=== PATIENT | female | born 1955 | race Caucasian/White ===

== ENCOUNTER 2017-04-02 05:45 | Day surgery (SDC) | payer OTHER ==
[~2017-04-02] VITALS: Ht 167.6 cm; Wt 85.4 kg
[2017-04-02] VITALS (7 sets, daily range): BP systolic 96–116; BP diastolic 55–71; PULSE 60–66; RESP 11–22; Ht 167.6 cm; Wt 85.4 kg
[2017-04-02] MEDS ORDERED: LACTATED RINGER'S 1,000 ML IV ONE (06:30)
[2017-04-02] MEDS ORDERED: LIDOCAINE 2%/EPI 30 ML INJ ONE (06:41)
[2017-04-02] MEDS ORDERED: LIDOCAINE 1% (MPF) 10 ML INJ ONE (06:41)
[2017-04-02] MEDS ORDERED: HYALURONATE/CHONDROITIN 1ML OPH INJ ONE (06:42)
[2017-04-02] MEDS ORDERED: EPINEPHrine 1 MG INJ ONE (06:42)
[2017-04-02] MEDS ORDERED: CARBACHOL 0.01% 1.5 ML OPH INJ ONE (06:42)
[2017-04-02] MEDS ORDERED: NA HYALURONATE/CHONDROITIN 0.5 ML SYG ONE (06:42)
[2017-04-02] MEDS ORDERED: LIDOCAINE 2%/EPI MPF (SDV) 20 ML VIAL INJ ONE (06:56)
[2017-04-02] MEDS ORDERED: LIDOCAINE 1% (MPF) 10 ML INJ INJ ONE (06:57)
[2017-04-02] MEDS ORDERED: HYALURONATE/CHONDROITIN 1ML OPH INJ IO ONE (06:57)
[2017-04-02] MEDS ORDERED: NA HYALURONATE/CHONDROITIN 0.5 ML SYG LEFT EYE ONE (06:57)
[2017-04-02] MEDS ORDERED: MOXIFLOXACIN 0.5% 3 ML OPH OPER SCH (07:00)
[2017-04-02] MEDS ORDERED: TROPICAMIDE 1% 2 ML OPH OPER SCH (07:00)
[2017-04-02] MEDS ORDERED: LIDOCAINE 3.5% GEL TUBE OPER SCH (07:00)
[2017-04-02] MEDS ORDERED: DICLOFENAC 0.1% 2.5 ML OPH OPER SCH (07:00)
[2017-04-02] MEDS ORDERED: TETRACAINE 0.5% 4 ML OPH BOTH EYES SCH (07:00)
[2017-04-02] MEDS ORDERED: PHENYLephrine 10% 5 ML OPH OPER SCH (07:00)
[2017-04-02] MEDS ORDERED: CYCLOPENTOLATE 2% 2 ML OPH OPER SCH (07:00)
[2017-04-02] MEDS ORDERED: PREDNISOLONE ACET 1% 5 ML OPH OPER SCH (07:00)
[2017-04-02] MEDS ORDERED: TOBRAMYCIN 0.3% 3.5 GM OPH OINT ONE (07:11)
--- NOTE | 2017-04-02 07:11 | HPN ---
Date/Time of Note Date/Time of Note DATE: 04/02/17 TIME: 07:11 Interval H&P Admission Note Pt. seen H&P reviewed: No system changes HOMERO MARTINEZ D.O. Apr 02, 2017 07:11
[2017-04-02] MEDS ORDERED: MIDAZOLAM 1 MG/ML 2 ML INJ ONE ×2 (07:28→08:21)
[2017-04-02] MEDS ORDERED: FENTAnyl 50 MCG/ML VIAL ONE (07:28)
[2017-04-02] MEDS ORDERED: GABA300C16 PO (07:31)
[2017-04-02] MEDS ORDERED: POTA20TA96 PO (07:31)
[2017-04-02] MEDS ORDERED: FURO20TA3 PO (07:31)
[2017-04-02] MEDS ORDERED: TRHC5025 PO (07:31)
[2017-04-02] MEDS ORDERED: NORTRIPTYLINE ORAL (07:31)
[2017-04-02] MEDS ORDERED: LOVA20TA PO (07:31)
[2017-04-02] MEDS ORDERED: TRYPAN BLUE 0.5 ML SYG IO ONE (07:35)
[2017-04-02] MEDS ORDERED: CEFAZOLIN 1 GM INJ ONE (07:48)
[2017-04-02] MEDS ORDERED: TOBRAMYCIN 0.3% 3.5 GM OPH OINT LEFT EYE ONE (08:13)
--- NOTE | 2017-04-02 09:04 | OPR ---
Date/Time of Note Date/Time of Note DATE: 04/02/17 TIME: 08:59 Operative Report Preoperative Diagnosis Senile cataract.Left eye Postoperative Diagnosis Senile cataract, Left eye Operation/Procedure Performed Cataract extraction via phacoemulsification and intraocular lens implantation, Left eye Surgeon: HOMERO MARTINEZ D.O. Anesthesia: MAC Estimated Blood Loss: none Grafts/Implants Baush and Lomb, anterior chamber lens 16.0 D Complications anterior capsular bag tear HOMERO MARTINEZ D.O. Apr 02, 2017 09:04
--- NOTE | 2017-04-04 08:42 | OPR ---
DATE OF OPERATION: 04/02/2017 PREOPERATIVE DIAGNOSIS: Senile cataract left eye. POSTOPERATIVE DIAGNOSIS: Senile cataract left eye. : Cataract extraction via phacoemulsification and intraocular lens implantation. PROCEDURE PERFORMED: Cataract extraction via phacoemulsification and intraocular lens implantation, left eye. SURGEON: Briseida Ortiz DO CONSENT: The patient was given detailed explanation regarding the different options of treatment of cataract and all possible complications, which include, but are not limited to infection, bleeding, loss of nucleus material, loss of intraocular veins, tear of intraocular of capsular bag, vitreous prolapse, loss of vision, loss of the eye as an organ. The patient is aware of all complications and she signed the consent. PROCEDURE IN DETAIL: The patient brought to the operating room in sterile condition and placed on the operating table in the supine position. The left eye was prepped for cataract surgery using sterile technique. Retractor was placed in the left eye and clear corneal incision was done with keratome, which was followed by injection of lidocaine 2% with epinephrine and Viscoat agent. Air was injected into the anterior chamber. This was followed by injection of dye. It was infused and then it was flushed out by balanced salt solution. Additional Viscoat agent was instilled into the anterior chamber and capsulorrhexis was done successfully with cystatome and Utrata forceps. Hydrodissection and hydrodilation was done. Some residual was noticed. Then paracentesis was performed 6 degrees from initial incision and was inserted into the anterior chamber as well as and nucleus was divided into multiple pieces in a horizontal fashion chopping technique. Each of the pieces were emulsified successfully. Then cortex was removed. Additional DisCoVisc agent was injected into the posterior chamber and attempt of sulcus lens implantation was done, but the lens was not stable and was not attempted. Eventually the lens was removed after extension of original corneal excision. Bausch and Lomb L122UV anterior chamber lens plus 16 was inserted in the anterior chamber with slider and eventually centered. was done in the temporal area and DisCoVisc was removed with aspiration and irrigation. was injected. Eventually 10-0 microsuture was placed on the wound. The air bubble was injected in the anterior chamber for cornea implant protection. Then Tobradex ointment was instilled into conjunctiva sock and patch was placed over closed eyelid. Dictated By: Briseida Ortiz DO /[email or web address] /Document#: [id number]
== END 2017-04-02 10:05 | disposition home or self-care (01) ==
LOC: SDS 05:45
PROVIDERS: ATTEND Ophthalmology
DX: H25.9 Unspecified age-related cataract (principal)
CPT/HCPCS: 66984; J0171; J0690; J2250; J3010; J7120; V2630; V2632; Z7512; Z7610

== ENCOUNTER 2017-07-02 07:50 | Day surgery (SDC) | payer OTHER ==
[~2017-07-02] VITALS: Ht 170.2 cm; Wt 81.7 kg
[~2017-07-02 07:50] MED LIST: BROMFENAC SODIUM 1.7 ML OPH DROP OPER SCH; CYCLOPENTOLATE 2% 2 ML OPH OPER SCH; DICLOFENAC 0.1% 2.5 ML OPH OPER SCH; FURO20TA3 PO; GABA300C16 PO; LACTATED RINGER'S 1,000 ML IV SCH; LIDOCAINE 3.5% GEL TUBE OPER ONE; LOVA20TA PO; MOXIFLOXACIN 0.5% 3 ML OPH OPER SCH; NORTRIPTYLINE ORAL; PHENYLephrine 10% 5 ML OPH OPER SCH; POTA20TA96 PO; TETRACAINE 0.5% 4 ML OPH OPER SCH; TRHC5025 PO; TROPICAMIDE 1% 3 ML OPH OPER SCH
[2017-07-02] MEDS ORDERED: GABA-526 PO (08:14)
[2017-07-02] MEDS ORDERED: POTA20TA15 PO (08:16)
[2017-07-02] MEDS ORDERED: MAXIDE PO (08:18)
[2017-07-02] MEDS ORDERED: NORT25CA PO (08:19)
[2017-07-02] MEDS ORDERED: ALLO100T PO (08:19)
[2017-07-02] MEDS ORDERED: CARBACHOL 0.01% 1.5 ML OPH INJ ONE (08:35)
[2017-07-02] MEDS ORDERED: NA HYALURONATE/CHONDROITIN 0.5 ML SYG ONE (08:35)
[2017-07-02] MEDS ORDERED: LIDOCAINE 2%/EPI (MDV) 20ML INJ ONE (08:35)
[2017-07-02] MEDS ORDERED: TOBRAMYCIN 0.3% 3.5 GM OPH OINT ONE (08:36)
[2017-07-02] MEDS ORDERED: EPINEPHrine 1 MG INJ ONE (08:37)
[2017-07-02] MEDS ORDERED: TRYPAN BLUE 0.5 ML SYG IO ONE (08:37)
[2017-07-02] MEDS ORDERED: CARBACHOL 0.01% 1.5 ML OPH INJ IO ONE (08:52)
[2017-07-02] MEDS ORDERED: LIDOCAINE 2%/EPI MPF (SDV) 20 ML VIAL INJ ONE (08:52)
[2017-07-02] MEDS ORDERED: TOBRAMYCIN/DEXAMETH 3.5 GM OPH OINT RIGHT EYE ONE (08:54)
[2017-07-02] MEDS ORDERED: LIDOCAINE 3.5% GEL TUBE OPER ONE (09:00)
[2017-07-02 09:01] VITALS: BP 103/82; PULSE 81; RESP 16; Ht 170.2 cm; Wt 81.7 kg
--- NOTE | 2017-07-02 09:11 | HPN ---
Date/Time of Note Date/Time of Note DATE: 07/02/17 TIME: 09:11 Interval H&P Admission Note Pt. seen H&P reviewed: No system changes HOMERO MARTINEZ D.O. Jul 02, 2017 09:11
[2017-07-02] MEDS ORDERED: CEFAZOLIN 1 GM INJ ONE (09:23)
[2017-07-02] MEDS ORDERED: MIDAZOLAM 1 MG/ML 2 ML INJ ONE ×2 (09:23→09:27)
[2017-07-02] MEDS ORDERED: FENTAnyl 50 MCG/ML VIAL ONE (09:24)
[2017-07-02] MEDS ORDERED: DEXAMETHASONE 4 MG/ML 1 ML INJ ONE (09:37)
[2017-07-02] MEDS ORDERED: METOCLOPRAMIDE 10 MG INJ ONE (09:37)
[2017-07-02] MEDS ORDERED: ONDANSETRON 4 MG INJ ONE (09:37)
[2017-07-02] MEDS ORDERED: MEPERIDINE 25 MG INJ IV PRN (10:00)
[2017-07-02] MEDS ORDERED: ONDANSETRON 4 MG INJ IV PRN (10:00)
[2017-07-02] MEDS ORDERED: METOCLOPRAMIDE 10 MG INJ IV PRN (10:00)
[2017-07-02] MEDS ORDERED: FENTAnyl 50 MCG/ML VIAL IV PRN (10:00)
[2017-07-02] MEDS ORDERED: HYDROmorphONE (0.2 MG/ML) 10ML SYG IV PRN (10:00)
[2017-07-02] MEDS ORDERED: LABETALOL HCL 20MG INJ IV PRN (10:00)
[2017-07-02] MEDS ORDERED: EPHEDrine SULFATE 50 MG/5 ML SYG IV PRN (10:00)
[2017-07-02] MEDS ORDERED: DIPHENHYDRAMINE 50 MG INJ IV PRN (10:00)
[2017-07-02 10:07] VITALS: BP 108/68; PULSE 73; RESP 14
[2017-07-02 10:13] VITALS: BP 102/65; PULSE 70; RESP 20
[2017-07-02 10:18] VITALS: BP 111/72; PULSE 68; RESP 16
[2017-07-02 10:23] VITALS: BP 111/77; PULSE 68; RESP 21
[2017-07-02 10:38] VITALS: BP 105/58; PULSE 76; RESP 18
--- NOTE | 2017-07-03 12:23 | OPR ---
DATE OF OPERATION: 07/02/2017 SURGEON: Homero Ortiz DO. ANESTHESIOLOGIST: Dr. Shamar Maciel M.D. PREOPERATIVE DIAGNOSIS: Senile cataract, right eye. POSTOPERATIVE DIAGNOSIS: Senile cataract, right eye. PLANNED OPERATION: Cataract extraction via phacoemulsification and intraocular lens implantation, right eye. PROCEDURE PERFORMED: Cataract extraction via phacoemulsification and intraocular lens implantation, right eye. CONSENT: Patient aware of the possibility of major complications such as infection, bleeding, loss of lens fragment, displacement or loss of intraocular lens, retinal detachment, loss of vision, loss of the eye as an organ. Patient agreed to have the surgery done and signed consent which can be found in her chart. PROCEDURE: The patient was brought to operation room in stable condition and placed on the operating table in supine position. The right eye was prepped for cataract surgery in routine sterile technique. Clear cornea incision was done with keratome, which was followed by injection of preservative-free lidocaine with epinephrine. The air bubble was injected as well. Then Trypan Blue dye was injected under the air bubble to stain anterior capsule. It was followed by irrigation with balanced salt solution. Then Viscoat agent was injected into anterior chamber and capsulorrhexis was performed with cystotome and Utrata forceps. Then hydrodissection and hydrodelineation was done. The nucleus moved free. Paracenesis was done with superblade. The LiPlasome [employer]armaara chopper was inserted into anterior chamber as well as at the tip of phaco instrument. Then nucleus was divided into multiple pieces in a fashion of horizontal chopping technique. Each of the pieces was emulsified successfully. Then the cortex was removed via irrigation and aspiration and additional Viscoat agent was injected into posterior chamber. eventually Fahad lens SN60WF + 20.0 D was inserted into posterior chamber and rotated with a Sinskey hook and centered well. Then Viscoat agent was removed via irrigation and aspiration with balanced salt solution and one 10-0 nylon suture placed on the entrance incision. Additionally air bubble was injected to protect corneal endothelium. TobraDex ointment was instilled in right conjunctival sac and patch was placed over closed eyelid. Dictated By: HOMERO GUERRA/BELA Conf#: [id number] DID#: [id number] [facility]ENTERAugust[facility]
== END 2017-07-02 11:10 | disposition home or self-care (01) ==
LOC: SDS 07:50
PROVIDERS: ATTEND Ophthalmology
DX: H25.11 Age-related nuclear cataract, right eye (principal)
CPT/HCPCS: 66984; J0171; J0690; J1100; J2250; J2405; J2765; J3010; V2632; Z7512; Z7610

== ENCOUNTER 2017-07-28 22:48 | Inpatient (IN) | END 2017-09-24 09:30 | disposition hospice, inpatient (51) | DRG 734 ==